=== PATIENT | male | born 1950 | race Caucasian/White ===

== ENCOUNTER → 2021-05-09 09:06 | Outpatient (CLI) | payer MEDICARE, OTHER, SELFPAY ==
[2021-05-09 12:06] LABS: COVID19 -Nasal RAPID Negative (Negative)
== END ==
PROVIDERS: Visit Provider Physician Assistant
DX: Z20.822 Contact with and (suspected) exposure to COVID-19 (principal)
CPT/HCPCS: 87635; C9803

== ENCOUNTER 2021-05-11 11:58 | Day surgery (SDC) | payer MEDICARE, OTHER, SELFPAY ==
[2021-05-09 11:48] VITALS: BMI 33.0
[2021-05-11] VITALS (12 sets, daily range): BP systolic 136–162; BP diastolic 59–78; PULSE 43–76; RESP 12–18; TEMP 36.3–36.8; O2SAT 92–100; BMI 32.3
[2021-05-11] MEDS: LACTATED RINGERS 1,000 ML 42 ML IV (13:00)
--- NOTE | 2021-05-11 14:05 | PM.PREOP ---
Pre-operative Note COVID-19 COVID-19 status: Negative Interval Note History & Physical reviewed/Exam performed by Physician: Yes Changes to H&P: No
--- NOTE | 2021-05-11 14:18 | P.OP_ITS ---
Operative Date/Time/Diagnoses Date of procedure: 05/11/21 Time of procedure: 15:15 Pre-op diagnosis: left knee medial compartment arthritis Post-op diagnosis: same Procedure & Clinicians Procedure: Left knee medial compartment arthroplasty Same procedure as scheduled: Yes Indications: The patient presents today for medial compartment knee arthroplasty after failure of conservative treatment. The nature of the procedure including the risks and benefits, alternatives, postoperative course and expected outcome were discussed and all questions answered. Consent was obtained. Operative site confirmed and marked. Surgeon: Carlos Ervin Vibration Technician: Jason Salinas Anesthesia Type: General, Peripheral nerve block and Local Operative Notes Closure Type: primary Specimen(s): none sent Prosthetic devices, grafts, tissues, transplants, or devices: Oliva and nephClarabridge JUK 7 femur, 7 tibia and 9 mm polyethylene tray. Applied: implant(s) Estimated Blood Loss (mL): 10 Blood products transfused: none Tourniquet time (min): 60 Procedure in detail: The patient was taken to the operative suite and placed under general anesthesia. The patient received prophylactic antibiotics 1 g of IV tranexamic acid prior to surgery. The lateral aspect of the leg was prepped and the knee injected with 20 mL of 1% lidocaine with epinephrine. The leg was prepped and draped in usual sterile fashion. The leg was exsanguinated with an Esmarch dressing and the tourniquet raised to 250 torr. A 10 cm medial parapatellar incision and arthrotomy was then made. The anterior aspect of the fat pad and medial meniscus was resected. A small amount of anterior tibial boss was resected with a oscillating saw. The knee was then extended and the alignment guide placed. The distal femoral and proximal tibial cutting guides were then pinned into place. The distal femoral cut was made in extension. The proximal tibial cut was made in flexion. All remaining meniscus was excised. Gaps were checked with blocks. Soft tissues were then injected with a combination of 40 mL of quarter percent Marcaine with epinephrine, 20 mL of Exparel. The femur was sized and the appropriate cutting guide placed. The peg holes were drilled and chamfer cuts made. Next the tibia was sized and drilled. Trial components were then placed. The knee had good latter day of soft tissue tension without over correction. Range of motion was full. The trial components were removed. The knee was cleansed with Pulsavac irrigation and dried. The components were then cemented with high viscosity vacuum mixed bone cement. The knee was held in extension until the cement had adequately cured. The knee was then irrigated and inspected for any further debris. The extensor mechanism was closed at 90? of flexion with a few interrupted #1 Vicryl sutures and a running O V-LOC suture. The knee was then filled with 50 mL of solution containing 1 g of tranexamic acid and 10 mL of 0.5% Marcaine. The subcutaneous tissue was closed with 2-0 Vicryl. The skin was closed with a running 3 0 V-LOC suture and surgical adhesive. An Aquacel dressing was applied. The leg was then wrapped with an Shaheed which will be kept on for the first 24 hours. The patient tolerated the procedure well and was returned to recovery room in good condition. Complications: none Post-operative Condition: stable Disposition: same day surgery Plan for aftercare: Discharge to home. Weightbearing and range of motion as tolerated. May keep dressing in place for 10-14 days. Follow up in 2 weeks.
[2021-05-11] MEDS: LIDOCAINE 1% W/EPI 20 ML INJ (14:23)
--- NOTE | 2021-05-11 14:25 | SUR.PREOP ---
preop 1401-on monitors, and preparing for nerve block left knee by Dr Sebastian. oxygen 2l nc. ekg SB no ectopy. 1412-Block completed. pt tolerated well. vss.
[2021-05-11] MEDS: CEFAZOLIN 2 GM/20 ML SYRINGE IV (14:30)
[2021-05-11] MEDS: TRANEXAMIC ACID 1,000 MG VIAL 2000 MG INJ ×2 (14:35→14:54)
--- NOTE | 2021-05-11 14:45 | SUR.OPER ---
Supine on padded OR bed. Pillow under head, arms secured on padded armboards <90 degree abduction. Safety belt across torso. Non-operative leg secured with tape over blanket over lower leg. Operative leg secured in Rafa positioner and in control of the Surgeon. Foam padded brace at thigh of operative leg.
--- NOTE | 2021-05-11 14:47 | PM.PROC.1 ---
Procedures Date/Time Date of procedure: 05/11/21 Time of procedure: 14:00 General Procedure description: Ultrasound guided adductor canal nerve block for post op pain control after left unipolar knee arthroplasty by Dr. Ervin. Risk and benefits of procedure discussed with patient. ASA monitoring applied to patient. O2 given via nasal cannula. 2 mg Versed and 50 mcg fentanyl given for procedural sedation. Skin site was prepped with chlorhexidine and allowed to fully dry. Sterile gloves, mask, hat and probe cover were used to maintain sterility. 2% lidocaine and 30ga needle was used to make a small skin wheal at needle insertion site. Under ultrasound guidance, a 21ga 100mm Pajunk needle was directed into the adductor canal near femoral artery and saphenous nerve at the level of mid thigh. Patient reported no parasthesias. After negative aspiration, 20 mL 0.5% ropivicaine and 10mg dexamethasone were injected around saphenous nerve. Patient tolerated procedure well.
[2021-05-11] MEDS: BUPIVACAINE 0.5% W/ EPI (PF) 20 ML, BUPIVACAINE LIPOSOME 266 MG, SODIUM CHLORIDE 0.9% 2... INJ (14:50)
--- NOTE | 2021-05-11 16:57 | SUR.PHASEII ---
phase 2 notes: 1645-Met criteria for discharge. Wide awake and alert. vss. iv out. dressed self with assistance. denies pain or nausea. tolerated fluids and pudding. home instructions completed and copies with patient. assisted oob to test left leg strength using wbat with walker. some mild numbness left foot / lower leg but able to put weight on leg with out buckling. Encouraged to use walker at home to support left leg. 1655-Discharged to 's care and car with all belongings and paperwork. Discussed with that patient had nerve block and may need to use walker for left leg strength. patient states feels ok to walk on and stated does not feel like it is weak.
== END 2021-05-11 16:55 | disposition home or self-care (01) ==
PROVIDERS: PCP Physician Assistant Medical; Referring Provider Orthopaedic Surgery; Visit Provider Orthopaedic Surgery
PROC: (CPT 27446; principal; 2021-05-11 13:45)
DX: M17.12 Unilateral primary osteoarthritis, left knee (principal); Z86.73 Personal history of transient ischemic attack (TIA), and cerebral infarction without residual deficits
CPT/HCPCS: 27446; 64450; 82962; C1776; C9290; J0690; J1100; J2250; J2405; J2704; J3010